=== PATIENT | male | born 1980 | race Caucasian/White ===

== ENCOUNTER 2017-09-20 19:49 | Emergency (ER) | payer SELFPAY ==
[~2017-09-20] VITALS: Ht 167.6 cm; Wt 84.4 kg
[2017-09-20 20:12] VITALS: BP 138/77
--- NOTE | 2017-09-20 20:24 | NUR ---
PT AMBULATED TO ER BED 03
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
[2017-09-20] MEDS: IBUPROFEN 600 MG TAB PO ONE (20:55)
[2017-09-20] MEDS: ACETAMINOPHEN EXTRA STRENGTH 500 MG TAB PO ONE (20:55)
[2017-09-20 22:17] VITALS: BP 138/77
== END 2017-09-20 22:17 | disposition home or self-care (01) ==
LOC: MED 19:49
DX: S50.12XA Contusion of left forearm, initial encounter (principal); W22.8XXA Striking against or struck by other objects, initial encounter; Y93.89 Activity, other specified; Y92.89 Other specified places as the place of occurrence of the external cause; Y99.8 Other external cause status
CPT/HCPCS: 73060; 73090; 99284; Q0092